=== PATIENT | female | born 1985 | race Caucasian/White ===

== ENCOUNTER → 2017-05-26 | Emergency (ER) | payer SELFPAY | END | disposition left against medical advice (07) | LOC: D.ER 18:29 | DX: R52 Pain, unspecified (principal) ==

== ENCOUNTER 2017-12-20 15:14 | Emergency (ER) | payer SELFPAY | END 2017-12-20 19:52 | disposition home or self-care (01) | LOC: D.ER 15:14 | DX: S62.306A Unspecified fracture of fifth metacarpal bone, right hand, initial encounter for closed fracture (principal); W22.8XXA Striking against or struck by other objects, initial encounter; Y93.89 Activity, other specified; Y92.019 Unspecified place in single-family (private) house as the place of occurrence of the external cause ==

== ENCOUNTER 2018-04-03 04:59 | Emergency (ER) | payer SELFPAY ==
[~2018-04-03] VITALS: Ht 167.6 cm; Wt 61.4 kg
[2018-04-03 05:05] VITALS: Ht 167.6 cm; Wt 61.4 kg
[2018-04-03] MEDS ORDERED: BACTRIM DS TABL1 TAB PO (05:07)
[2018-04-03] MEDS ORDERED: RIFADIN300 MG PO (05:23)
[2018-04-03] MEDS ORDERED: HYDROCODONE-APA1 TAB PO (05:23)
[2018-04-03 05:26] VITALS: BP 118/65
== END 2018-04-03 05:28 | disposition home or self-care (01) ==
LOC: D.ER 04:59
DX: L02.31 Cutaneous abscess of buttock (principal); R10.9 Unspecified abdominal pain

== ENCOUNTER 2018-04-04 03:06 | Emergency (ER) | payer SELFPAY ==
[~2018-04-04] VITALS: Ht 167.6 cm; Wt 58.2 kg
[~2018-04-04 03:06] MED LIST: BACTRIM DS TABL1 TAB PO; HYDROCODONE-APA1 TAB PO; RIFADIN300 MG PO
[2018-04-04 03:22] VITALS: Ht 167.6 cm; Wt 58.2 kg
[2018-04-04 04:21] VITALS: BP 123/78
== END 2018-04-04 04:21 | disposition home or self-care (01) ==
LOC: D.ER 03:06
DX: L02.416 Cutaneous abscess of left lower limb (principal)

== ENCOUNTER 2018-07-03 04:47 | Emergency (ER) | payer MEDICAID ==
[~2018-07-03] VITALS: Ht 167.6 cm; Wt 59.1 kg
[2018-07-03 04:54] VITALS: Ht 167.6 cm; Wt 59.1 kg
[2018-07-03] MEDS ORDERED: KEFLEX500 MG PO (05:22)
[2018-07-03] MEDS ORDERED: TORADOL10 MG PO (05:22)
[2018-07-03 05:53] VITALS: BP 122/74
== END 2018-07-03 05:59 | disposition home or self-care (01) ==
LOC: D.ER 04:47
DX: S90.121A Contusion of right lesser toe(s) without damage to nail, initial encounter (principal); S92.502A Displaced unspecified fracture of left lesser toe(s), initial encounter for closed fracture; S90.122A Contusion of left lesser toe(s) without damage to nail, initial encounter; T24.232A Burn of second degree of left lower leg, initial encounter; X17.XXXA Contact with hot engines, machinery and tools, initial encounter; Y92.89 Other specified places as the place of occurrence of the external cause